=== PATIENT | female | born 1960 | race Two or more races ===

== ENCOUNTER 2018-11-12 22:25 | Emergency (ER) | payer MEDICAID ==
[~2018-11-12] VITALS: Ht 165.1 cm; Wt 65.0 kg
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
[2018-11-12 22:40] VITALS: BP 114/74
--- NOTE | 2018-11-12 22:58 | NUR ---
[employer] HERE, ERP AT BEDSIDE FOR MEDICAL CLEARANCE
--- NOTE | 2018-11-12 23:02 | NUR ---
PT SEEN AND EVALUATED BY BLESSING HENDRICKS WANTS TO ARREST PT AT THIS TIME AND TAKE TO RETIREMENT, GIVEN MEDICAL CLEARANCE FOR RETIREMENT
== END 2018-11-12 23:09 | disposition home or self-care (01) ==
LOC: ED 23:03
DX: F10.120 Alcohol abuse with intoxication, uncomplicated (principal)
CPT/HCPCS: 99283

== ENCOUNTER 2020-04-27 22:20 | Emergency (ER) | payer MEDICAID ==
[~2020-04-27] VITALS: Ht 157.5 cm; Wt 55.0 kg
[2020-04-27 22:38] VITALS: BP 126/77
--- NOTE | 2020-04-27 23:54 | NUR ---
[id number]
--- NOTE | 2020-04-28 00:02 | NUR ---
NILX2
--- NOTE | 2020-04-28 00:12 | NUR ---
NILX3
== END 2020-04-28 00:13 | disposition left against medical advice (07) ==
LOC: ED 04-28 00:07
DX: M25.512 Pain in left shoulder (principal); M79.602 Pain in left arm; Z53.21 Procedure and treatment not carried out due to patient leaving prior to being seen by health care provider

== ENCOUNTER 2020-12-27 16:17 | Emergency (ER) | payer MEDICAID ==
[~2020-12-27] VITALS: Ht 157.5 cm; Wt 60.0 kg
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
--- NOTE | 2020-12-27 16:56 | NUR ---
REPORT FROM SATINDER ALCARAZ FOR TRANSFER OF PATIENT CARE. SITTER IN LINE OF SIGHT.
--- NOTE | 2020-12-27 17:17 | NUR ---
PATIENT SITTING AT SIDE OF NINA BONILLA, REFUSING VITALS, SITTER IN LINE OF SIGHT.
--- NOTE | 2020-12-27 17:22 | NUR ---
ERMD AT BEDSIDE FOR EVALUATION.
[2020-12-27] MEDS ORDERED: LIDOCAINE-MPF 1%, 5ML INFIL ONE (17:30)
[2020-12-27] MEDS ORDERED: DIPH,PERTUSS(ACELL),TET VAC/PF 0.5 ML IM-VACC ONE ×2 (17:30→17:55)
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
--- NOTE | 2020-12-27 18:23 | NUR ---
PATIENT RESTING IN GURNEY WITH EYES CLOSED, RESP EVEN AND UNLABORED, SITTER IN LINE OF SIGHT. WAITING FOR CT SCAN TO BE DONE.
--- NOTE | 2020-12-27 19:03 | NUR ---
BEDSIDE REPORT FROM JIN RAJAN, ALL QUESTIONS ADDRESSED.
--- NOTE | 2020-12-27 19:42 | NUR ---
CT CALLED TO FOLLOW UP ON SCAN AT THIS TIME.
--- NOTE | 2020-12-27 19:49 | NUR ---
PT TO CT AT THIS TIME, NINA.
--- NOTE | 2020-12-27 20:00 | NUR ---
PT BACK FROM CT AT THIS TIME.
[2020-12-27 20:57] VITALS: BP 100/70
--- NOTE | 2020-12-27 20:57 | NUR ---
PT RESTING ON CHAD NADMalena NO NEEDS AT THIS TIME. VSS
--- NOTE | 2020-12-27 21:47 | NUR ---
Patient/Caregiver given discharge instructions and they have confirmed that they understand the instructions. Patient ambulatory with steady gait. NAD, all questions answered appropriately, denies additional needs at this time. No personal belongings left in room after discharge.
== END 2020-12-27 21:49 | disposition home or self-care (01) ==
LOC: ED 16:47
DX: S01.01XA Laceration without foreign body of scalp, initial encounter (principal); S09.90XA Unspecified injury of head, initial encounter; R00.0 Tachycardia, unspecified; W22.8XXA Striking against or struck by other objects, initial encounter; Y93.89 Activity, other specified; Y92.410 Unspecified street and highway as the place of occurrence of the external cause; Y99.8 Other external cause status
CPT/HCPCS: 12032; 70450; 90471; 90715; 99284